=== PATIENT | female | born 1995 | race African-American/Black ===

== ENCOUNTER 2017-01-08 22:13 | Emergency (ER) | payer SELFPAY ==
[2017-01-08 22:15] VITALS: BP 124/73; PULSE 78; RESP 16; TEMP 98; O2SAT 99
[2017-01-08 23:31] LABS: BLOOD, URINE MOD (NEG); GLUCOSE,URINE NEG (NEG); KETONE, URINE NEG (NEG); NITRITE,URINE NEG (NEG); RENAL EPITHELIAL CELLS 18 /hpf
[2017-01-08 23:33] LABS: COMMENT (UR) CULTURE INDICATED; CULTURE IF INDICATED CULTURE INDICATED; URINE COLOR LIGHT-BROWN (YELLW/STRAW)
[2017-01-09] MEDS ORDERED: MACR100C2 PO (02:21)
[2017-01-09] MEDS ORDERED: PHEN0.4T PO (02:21)
--- NOTE | 2017-01-09 02:25 | PD ---
HPI Chief Complaint: Complaint Time Seen by Provider: 02:15 Travel History International Travel<30 days: No Contact w/Intl Traveler<30days: No Traveled to known affect area: No History of Present Illness HPI This is a 21-year-old female who presents for evaluation of dysuria, hematuria. Symptoms started 2 days ago. She reports a burning sensation when she urinates. She denies vaginal bleeding or discharge, flank pain, vomiting, fevers or chills. Her last menstrual period was 2 weeks ago. She has no other complaints at this time. [facility] Past Medical History Medical History: Denies Significant Hx Social History Alcohol Use: No Tobacco Use: No Allergies-Medications (Allergen,Severity, Reaction): Coded Allergies: No Known Allergies (Unverified , 01/08/17) Reported Meds & Prescriptions Reported Meds & Active Scripts Active Pyridium (Phenazopyridine HCl) 100 Mg Tab 100 Mg PO Q8H PRN 3 Days Macrobid (Nitrofurantoin Monohydrate Macrocrystals) 100 Mg Capsule 100 Mg PO BID 7 Days Review of Systems Except as stated in HPI: all other systems reviewed are Neg Physical Exam Narrative GENERAL: Well-developed well-nourished female in no acute distress SKIN: Warm and dry. HEAD: Atraumatic. Normocephalic. EYES: Pupils equal and round. No scleral icterus. No injection or drainage. ENT: No nasal bleeding or discharge. Mucous membranes pink and moist. NECK: Trachea midline. No JVD. CARDIOVASCULAR: Regular rate and rhythm. No murmur appreciated. RESPIRATORY: No accessory muscle use. Clear to auscultation. Breath sounds equal bilaterally. GASTROINTESTINAL: Abdomen soft, mild suprapubic tenderness without guarding. MUSCULOSKELETAL: No obvious deformities. NEUROLOGICAL: Awake and alert. No obvious cranial nerve deficits. Motor grossly within normal limits. Normal speech. Data Data Last Documented VS Vital Signs Date Time Temp Pulse Resp B/P Pulse Ox O2 Delivery O2 Flow Rate FiO2 01/08/17 22:15 98.0 78 16 124/73 99 Orders Urinalysis - C+S If Indicated (01/08/17 23:02) Urine Culture (01/08/17 23:00) Ed Urine Pregnancytest Poc (01/09/17 02:04) Nitrofurantoin Monohyd Macrocr (Macrobid (8/16/17 02:30) Labs Laboratory Tests Test 01/08/17 23:00 Urine Color LIGHT-BROWN Urine Turbidity CLOUDY Urine pH 7.0 Urine Specific [place] 1.020 Urine Protein 100 mg/dL Urine Glucose (UA) NEG mg/dL Urine Ketones NEG mg/dL Urine Occult Blood MOD Urine Nitrite NEG Urine Bilirubin NEG Urine Urobilinogen LESS THAN 2.0 MG/DL Urine Leukocyte Esterase LARGE Urine RBC /hpf Urine WBC /hpf Urine WBC Clumps MANY Urine Renal Epithelial Cells 18 /hpf Microscopic Urinalysis Comment CULTURE INDICATED MDM Medical Decision Making Medical Screen Exam Complete: Yes Emergency Medical Condition: Yes Medical Record Reviewed: Yes Differential Diagnosis Cystitis, urethritis, pyelonephritis, pelvic inflammatory disease Narrative Course 21-year-old female presents with 2 days of dysuria, hematuria. Urinalysis reveals innumerable white blood cells, RBCs, culture is pending. The patient is being discharged with Pyridium, Macrobid prescriptions. Diagnosis Primary Impression: Cystitis Additional Instructions: Medications as prescribed. Stay well hydrated and well-nourished. Follow-up with primary care physician. Return for any acutely new or worsening symptoms. Med/Other Pt SpecificInfo: Prescription(s) given Scripts Phenazopyridine (Pyridium)100 Mg [id number] Mg PO Q8H PRN (DYSURIA) 3 Days Ref 0 Prov:Alexia Bran MD 01/09/17 Nitrofurantoin Monohydrate Macrocrystals (Macrobid)100 Mg [id number] Mg PO BID 7 Days Ref 0 Prov:Alexia Bran MD 01/09/17 Disposition: 01 DISCHARGE HOME Condition: Stable [place] Jan 09, 2017 02:25
[2017-01-09] MEDS ORDERED: NITROFURANTOIN MONOHYD MACROCR 100 MG CAP PO ONE (02:30)
== END 2017-01-09 02:38 | disposition home or self-care (01) ==
LOC: NEPD 22:13
DX: N30.90 Cystitis, unspecified without hematuria (principal); B96.20 Unspecified Escherichia coli [E. coli] as the cause of diseases classified elsewhere
CPT/HCPCS: 81001; 84703; 87077; 87086; 87186; 99284